=== PATIENT | male | born 1960 | race Two or more races ===

== ENCOUNTER → 2020-01-30 | Outpatient (CLI) | payer OTHER ==
[~2020-01-30] MED LIST: ACET500T68 PO; CRESTOR40 MG PO; GLIM4TAB8 PO; METF10007 PO; NAPR220C4 PO; SITA100T PO
--- NOTE | 2020-01-30 18:03 | PAIN ---
DATE OF SERVICE: 01/30/2020 INITIAL CONSULTATION FOR PAIN CLINIC CHIEF COMPLAINT: Low back and left lower extremity pain. HISTORY OF PRESENT ILLNESS: This is a 59-year-old male who presents with history of pain in the low back, left lower extremity for about a year or little more. The patient reports no specific injury or action he is aware of, but has pain, significant in the low back, left leg with walking, standing, getting up from a seated position and also feels numb in the left gluteus. The patient reports it awakens him from sleep about 3 times a night, can affect his bowel or bladder control, but no loss of continence, just some increased frequency. The patient reports it does affect his ability to walk and stand more than about 15-20 minutes. He tried physical therapy. He has had chiropractic treatment as needed, which were helpful, but only for short term. He is taking Tylenol and Aleve, both of which do decrease the pain by only about 20%. The patient reports he has done Medrol Dosepak as well, which was only temporarily helpful for the first few days while he was taking it also. The patient describes the pain as stabbing and sharp in the left leg, some on the right groin as well, in the right posterior thigh, but mostly in the left posterior thigh and calf, with walking, also some tingling, numbness, radiating pain and can feel cold in the leg as well, worse during the end of the day or at night and he has been on his feet most of his working day. The patient did have an MRI scan of the lumbar spine showing mild spinal stenosis at L3-L4, severe spinal stenosis at L4-L5 with compression of the traversing nerve roots, right greater than left L3-L4 and L4-L5, bilateral L5-S1 neural foraminal narrowing. The patient rates his disability from 0-10, 10 being the worst, 0 is with family home responsibilities, self-care and life support activities, 6 with recreation, 5 with occupational and 5 with sexual behavior. PAST MEDICAL HISTORY: Significant for diabetes type 2, arthritis, also history of psoriasis. PREVIOUS SURGERY: No previous surgeries. CURRENT MEDICATIONS: Include Crestor, glimepiride, metformin, Januvia, acetaminophen, and Aleve. ALLERGIES: The patient has no known drug allergies. FAMILY HISTORY: Significant for diabetes. SOCIAL HISTORY: The patient does not drink alcohol, does not smoke. Does not use any illegal, illicit or recreational drugs. 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 He is on his feet most of his working day, which can be a 10-15 hours or more at times, which does exacerbate his pain. REVIEW OF SYSTEMS: The patient's review of systems is positive for those items mentioned in history of present illness. All systems reviewed and otherwise negative. It is complete, full and well documented on the patient's chart. PHYSICAL EXAMINATION: VITAL SIGNS: The patient's blood pressure is 122/84, pulse 79, respirations 16, temperature 98.3 degrees Fahrenheit, height is 5 feet 7 inches, weight is 165 pounds. GENERAL: The patient is awake, alert, oriented, appropriate, very pleasant demeanor. HEENT: Shows normocephalic, atraumatic. Extraocular movements are intact and symmetrical. Oral cavity: Mucous membranes moist and pink. Dentition is intact. NECK: Shows anterior throat supple without palpable lymphadenopathy noted. Swallow reflex symmetrical. CHEST: Shows normal on inspection. Breath sounds are clear bilaterally. HEART: Shows S1, S2 clear. No murmurs auscultated. ABDOMEN: Soft, nontender, nondistended. No palpable organomegaly is noted. No rebound or guarding demonstrated. BACK: Shows spine grossly in the midline. Normal appearing thoracic kyphosis and minor flattening of lumbar lordotic curvature. Lumbar paraspinous muscle shows symmetrical on inspection, with palpation shows some moderate tenderness diffusely throughout the upper, middle and lower distribution of paraspinous muscles. No specific tenderness over the spinous processes, sacrum or sacroiliac regions. The patient has good rotational motion of lumbar spine with some moderate tenderness with extension, but also with right and left lateral rotation. No tenderness with forward flexion, actually pain is decreased. EXTREMITIES: The patient's lower extremities show deep tendon reflexes 2+ in the patellar, 1+ tendo-calcaneus tendons. Motor exam is strong with approximately ____ scale of 5 with left ankle and 5/5 on the right, quadriceps and hamstring flexion 5/5 and symmetrical bilaterally. Peripheral pulses are 1+ posterior tibia. No peripheral edema is noted bilaterally. The patient's straight leg raise noted to be mildly positive on the left at about 45 degrees, right side is mildly positive with 45 degrees as well, both are decreased with knee flexion. Gaenslen's and Karan's maneuvers are negative bilaterally. The patient is able to stand, stand on his toes without difficulty or loss of balance, walks with a normal appearing gait for short distance in the office today, not using any assistive devices to ambulate such as canes or walkers. SKIN: The patient's skin shows warm and dry, good turgor. No edema. No sores, rashes or bruising. IMPRESSION: 1. This is a 59-year-old male with approximately 1-year history of increasing pain, low back and bilateral lower extremities, greater on the left than the right in a radicular fashion, status post physical therapy, stretching and strengthening exercises on his own, anti-inflammatories, Tylenol and without significant improvement with clinical radiculopathy at L4-L5 dermatomal distribution, left greater than right lower extremity present bilaterally. 2. MRI scan of lumbar spine as noted. 3. Diabetes type 2. 4. Arthritis. PLAN: Options were discussed with the patient including conservative medical managements, physical therapies, interventional techniques. He would like to pursue interventional techniques. We discussed a lumbar epidural steroid injection using description as well as anatomical models to describe the procedure. The patient would like to pursue this in light of formal physical therapy without significant improvement, anti-inflammatory medications, currently doing exercises, stretching and strengthening. The patient continues to work as well. We will preauthorize the patient for a lumbar epidural steroid injection, translaminar approach at the L4-L5 level. Once this is approved, we will have the patient return and plan on lumbar epidural steroid injection at that time. In the meantime, the patient will continue with stretching and strengthening exercises on his own as shown in physical therapy. IRENA DENNEY MD DR: JAMES/prasad JOB#: [id number] / [id number] ELIO Ontiveros MD
== END | disposition home or self-care (01) ==
LOC: PNCL 13:37
PROVIDERS: ATTEND Anesthesiology
DX: M54.16 Radiculopathy, lumbar region (principal); M19.90 Unspecified osteoarthritis, unspecified site; E11.9 Type 2 diabetes mellitus without complications; M48.061 Spinal stenosis, lumbar region without neurogenic claudication; Z79.899 Other long term (current) drug therapy
CPT/HCPCS: G0463

== ENCOUNTER → 2020-02-13 | Outpatient (CLI) | payer OTHER ==
[~2020-02-13] MED LIST changes: +IOHEXOL 180 MG/ML 10 ML VIAL. ONE; +methylPREDNISolone ACETATE 40 MG/ML VIAL. ONE; +methylPREDNISolone ACETATE 80 MG/ML VIAL. ONE
--- NOTE | 2020-02-13 10:42 | PDOC ---
Progress Note - Pain Clinic Date of Service: DOS: DATE: 02/13/20 TIME: 10:39 Diagnosis: Dx: Number radiculopathy with lumbar degenerative disc disease and lumbar spinal stenosis History or Present Illness: HPI: 59-year-old male returns follow-up status post initial evaluation preauthorization for lumbar epidural steroid injection patient's pain is seen today. Patient reports still significant pain in the low back left lower extremity posterior gluteus lateral thigh anterior thigh medial thigh as it was previously. Patient reports is a 9 on scale of 10 is worse over the past week 9 on average 9 at its least is a 9 today patient voices burning and stabbing in the low back and left lower extremity no new motor or sensory deficits no new bowel or bladder incontinence or complaints. Patient ports wakes him sleep better 6 to 7 hours still significant with walking standing changing positions patient reports without using assistive devices however. Reports no new bowel or bladder incontinence no new complaints. Physical Exam: VS: Blood pressure is 116/79 pulse 76 respirations 18 temp is 90.0 F weight is 167 PE: PHYSICAL EXAMINATION: GENERAL: The patient is awake, alert, oriented, appropriate, very pleasant demeanor HEENT: Shows normocephalic, atraumatic. Extraocular movements are intact and symmetrical. Oral cavity: Mucous membranes moist and pink. Dentition is intact. NECK: Shows anterior throat supple without palpable lymphadenopathy noted. Swallow reflex symmetrical. CHEST: Shows normal on inspection. Breath sounds are clear bilaterally. HEART: Shows S1, S2 clear. No murmurs auscultated. ABDOMEN: Soft, nontender, nondistended. No palpable organomegaly is noted. No rebound or guarding demonstrated. BACK: Shows spine grossly in the midline. Normal-appearing cervical lordotic curvature. There is slightly increased thoracic kyphosis, some minor flattening of the lumbar lordotic curvature. Lumbar paraspinous muscles show symmetrical on inspection, on palpation shows some moderate tenderness diffusely throughout the upper, middle and lower distribution of the paraspinous muscles bilaterally and also into the lower thoracic paraspinous musculature, firm and tender, but without specific trigger points, without radiation of pain. The patient has good rotational motion of the lumbar spine, both laterally as well as extension and flexion without significant difficulty. No tenderness over the spinous processes, sacrum or sacroiliac regions. EXTREMITIES: Lower extremities show deep tendon reflexes 2+ in the patellar and tendo calcaneus tendons. Motor exam is 5 on a scale of 5 with right dorsiflexion, extension, quadriceps and hamstring flexion and 4/5 on the left. Peripheral pulses are 1+ posterior tibial. No peripheral edema is noted bilaterally. Lower extremities are warm and dry to touch, equal in color and appearance. The patient is able to stand and walk without favoring the left lower extremity fairly significantly but again not use any assistive devices to ambulate.. SKIN: Shows warm and dry, good turgor. No edema. No sores, rashes or bruising throughout. Procedure: Procedure: Options were discussed with the patient patient chart was use of current medication regimen updated current review of systems updated today as well. We will proceed with a lumbar epidural steroid injection today. Risks were discussed including but not limited to bleeding infection possibility of epidural hematoma and subsequent neurological compromise dural puncture headache spinal cord and or nerve damage side effects of steroid medication and/chronic pain control. Patient understands wished to proceed. Patient return to clinic in approximate 2 weeks for follow-up was counseled return appointment activity level and side effects be aware. Medication Injected: Med Injected: Procedure is lumbar epidural steroid injection under local anesthetic using sterile prep and drape at the L4-5 level using C-arm fluoroscopic guidance in b oth AP and lateral views medications injected is 120 mg Depo-Medrol + 10 mL preservative-free normal saline and 2 mL for contrast- condition at discharge is stable patient tolerated procedure well had no complications. Condition at Discharge: Condition at Discharge: Condition at discharge stable patient on the procedure well had no complications. IRENA DENNEY MD Feb 13, 2020 10:42
== END | disposition home or self-care (01) ==
LOC: PNCL 09:20
PROVIDERS: ATTEND Anesthesiology
DX: M51.16 Intervertebral disc disorders with radiculopathy, lumbar region (principal); M48.061 Spinal stenosis, lumbar region without neurogenic claudication; Z79.899 Other long term (current) drug therapy
CPT/HCPCS: 62323; J1030; J1040; Q9965

== ENCOUNTER → 2020-02-27 | Outpatient (CLI) | payer OTHER ==
[~2020-02-27] MED LIST changes: -IOHEXOL 180 MG/ML 10 ML VIAL. ONE; -methylPREDNISolone ACETATE 40 MG/ML VIAL. ONE; -methylPREDNISolone ACETATE 80 MG/ML VIAL. ONE
--- NOTE | 2020-02-27 09:24 | PDOC ---
Progress Note - Pain Clinic Date of Service: DOS: DATE: 02/27/20 TIME: 09:20 Diagnosis: Dx: Lumbar radiculopathy with lumbar degenerative disease and lumbar spinal stenosis History or Present Illness: HPI: 59-year-old male returns follow-up status post lumbar Q injection x1. Patient reports about 80% improvement after the first injection was on February 12. Patient was doing very well continues to do well to this day is been about 3 weeks now with continued decrease in pain patient still has pain in the low back into the bilateral lower extremities more noticeable on the right side now in the posterior lateral thigh lateral anterior thigh medial thigh on the right with walking and standing occasionally wakes him from sleep about once a night now but is much less than it was. Patient reports no new motor or sensory deficits describes the pain is shooting in the low back in the bilateral lower extremities again now worse on the right patient rates as an 8 on a scale of 10 is worse over the past week 8 on average and 8 its least is an 8 today. Reports no new motor or sensory deficits no bowel or bladder incontinence or other complaints. Physical Exam: VS: Blood pressure is 124/75 pulse 74 respirations 18 temperature 98.7 F height is 5 feet 7 inches weight is 163 pounds PE: PHYSICAL EXAMINATION: GENERAL: The patient is awake, alert, oriented, appropriate, very pleasant demeanor HEENT: Shows normocephalic, atraumatic. Extraocular movements are intact and symmetrical. Oral cavity: Mucous membranes moist and pink. NECK: Shows anterior throat supple without palpable lymphadenopathy noted. Swallow reflex symmetrical. CHEST: Shows normal on inspection. Breath sounds are clear bilaterally. HEART: Shows S1, S2 clear. No murmurs auscultated. ABDOMEN: Soft, nontender, nondistended. No palpable organomegaly is noted. No rebound or guarding demonstrated. BACK: Shows spine grossly in the midline. Normal-appearing cervical lordotic curvature. There is slightly increased thoracic kyphosis, some minor flattening of the lumbar lordotic curvature. Lumbar paraspinous muscles show symmetrical on inspection, on palpation shows some moderate tenderness diffusely throughout the upper, middle and lower distribution of the paraspinous muscles bilaterally but without specific trigger points, without radiation of pain. The patient has good rotational motion of the lumbar spine, both laterally as well as extension and flexion without significant difficulty. No tenderness over the spinous p rocesses, sacrum or sacroiliac regions. EXTREMITIES: Lower extremities show deep tendon reflexes 2+ in the patellar and tendo calcaneus tendons. Motor exam is 4+ on a scale of 5 with right dorsiflexion, extension, quadriceps and hamstring flexion and 4/5 on the left. Peripheral pulses are 1+ posterior tibial. No peripheral edema is noted bilaterally. Lower extremities are warm and dry to touch, equal in color and appearance. SKIN: Shows warm and dry, good turgor. No edema. No sores, rashes or bruising throughout. Procedure: Procedure: Options were discussed with the patient. Patient's old chart was reviewed his his current medication regimen updated current review of systems updated today as well. We will proceed with a preauthorization for second lumbar epidural straight injection if is doing much better 80% improvement still with radicular pain in L4-5 dermatomal distribution bilaterally somewhat more noticeable on the right now than the left. Patient continue with stretching and strengthening exercises maintain daily walking activities and anti-inflammatories as he is currently doing. Authorization is obtained we will have the patient return for lumbar epidural to injection #2 translaminar approach at the L4-5 level at that time. Medication Injected: Med Injected: None Condition at Discharge: Condition at Discharge: Patient discharged in stable patient to return as scheduled IRENA DENNEY MD Feb 27, 2020 09:24
== END | disposition home or self-care (01) ==
LOC: PNCL 08:49
PROVIDERS: ATTEND Anesthesiology
DX: M51.16 Intervertebral disc disorders with radiculopathy, lumbar region (principal); M48.061 Spinal stenosis, lumbar region without neurogenic claudication; E11.9 Type 2 diabetes mellitus without complications; Z79.899 Other long term (current) drug therapy
CPT/HCPCS: G0463

== ENCOUNTER → 2020-05-23 | Outpatient (CLI) | payer OTHER ==
[~2020-05-23] MED LIST changes: +IOHEXOL 180 MG/ML 10 ML VIAL. ONE; +methylPREDNISolone ACETATE 40 MG/ML VIAL. ONE; +methylPREDNISolone ACETATE 80 MG/ML VIAL. ONE
--- NOTE | 2020-05-23 12:17 | PDOC ---
Progress Note - Pain Clinic Date of Service: DOS: DATE: 05/23/20 TIME: 12:13 Diagnosis: Dx: Lumbar radiculopathy with lumbar degenerative disc disease and lumbar spinal stenosis History or Present Illness: HPI: 60-year-old male returns follow-up status post lumbar epidural injection x1. Patient reports about 80% improvement after the last injection until about a week ago the pain began to return in his low back and right greater than left lower extremities left leg is doing much better he reports but has the right leg is still significant painful pain in the posterior gluteus posterior lateral thigh lateral anterior thigh anteromedial thigh medial lower leg as well as anterior lower leg again more on the right side. Patient scribes as tingling and burning can be severe at times worse with walking standing changing positions better with sitting or laying down patient ports pain is at worst a 10 on scale 10 average at 10-9 out of least and is a 10 today. Patient reports he is doing better with sitting or laying down however does not awaken her from sleep at night reports no new motor or sensory deficits no bowel or bladder incontinence or other complaints. Physical Exam: VS: Blood pressure is 118/76 pulse 76 respirations 18 temperature 98.5 F height is 5 feet 7 inches weight 165 pounds PE: PHYSICAL EXAMINATION: GENERAL: The patient is awake, alert, oriented, appropriate, very pleasant demeanor HEENT: Shows normocephalic, atraumatic. Extraocular movements are intact and symmetrical. Oral cavity: Mucous membranes moist and pink. Dentition is intact. NECK: Shows anterior throat supple without palpable lymphadenopathy noted. Swallow reflex symmetrical. CHEST: Shows normal on inspection. Breath sounds are clear bilaterally, no rales rhonchi or wheezes auscultated. HEART: Shows S1, S2 clear. No murmurs auscultated. ABDOMEN: Soft, nontender, nondistended, obese. No palpable organomegaly is noted. No rebound or guarding demonstrated. BACK: Shows spine grossly in the midline. Normal-appearing cervical lordotic curvature. There is slightly increased thoracic kyphosis, some minor flattening of the lumbar lordotic curvature. Lumbar paraspinous muscles show symmetrical on inspection, on palpation shows some moderate tenderness diffusely throughout the upper, middle and lower distribution of the paraspinous muscles, but without specific trigger points, without radiation of pain. The patient has good rotational motion of the lumbar spine, both laterally as well as extension and flexion without significant difficulty. No tenderness over the spinous processes, sacrum or sacroiliac regions. EXTREMITIES: Lower extremities show deep tendon reflexes 2+ in the patellar and tendo calcaneus tendons. Motor exam is 5 on a scale of 5 with right dorsiflexion, extension, quadriceps and hamstring flexion and 5/5 on the left. Peripheral pulses are 1+ posterior tibial. No peripheral edema is noted bilaterally. Lower extremities are warm and dry to touch, equal in color and appearance. SKIN: Shows warm and dry, good turgor. No edema. No sores, rashes or bruising throughout. Procedure: Procedure: Options were discussed with the patient. Patient chart was reviewed his his current medication regimen updated current review of systems updated today as well. We will proceed with a second in the series lumbar epidural steroid injection today with fluoroscopic guidance. Risks were discussed including but not limited to: Bleeding, infection, possibility of epidural hematoma and subsequent neurological compromise, dural puncture, headaches, spinal cord and/or nerve damage, side effects of steroid medication, and poor results regarding pain control. Patient understands wished to proceed. Patient will return to clinic in approximate 2 weeks for follow-up was counseled as to return appointment activity level and side effects to be aware of. Medication Injected: Med Injected: Procedure is lumbar epidural steroid injection under local anesthetic using sterile prep and drape at the L4-5 level using C-arm fluoroscopic guidance in both AP and lateral views medications injected is 120 mg Depo-Medrol + 10 mL preservative-free normal saline and 2 mL contrast- condition at discharge is stable patient tolerated procedure well had no complications. Condition at Discharge: Condition at Discharge: Condition at discharge is stable, patient tolerated procedure well and had no complications. IRENA DENNEY MD May 23, 2020 12:17
== END | disposition home or self-care (01) ==
LOC: PNCL 11:19
PROVIDERS: ATTEND Anesthesiology
DX: M51.16 Intervertebral disc disorders with radiculopathy, lumbar region (principal); M48.061 Spinal stenosis, lumbar region without neurogenic claudication; Z79.84 Long term (current) use of oral hypoglycemic drugs; Z79.899 Other long term (current) drug therapy
CPT/HCPCS: 62323; J1030; J1040; Q9965

== ENCOUNTER → 2020-09-13 | Outpatient (CLI) | payer OTHER ==
[~2020-09-13] MED LIST changes: -IOHEXOL 180 MG/ML 10 ML VIAL. ONE; -methylPREDNISolone ACETATE 40 MG/ML VIAL. ONE; -methylPREDNISolone ACETATE 80 MG/ML VIAL. ONE
--- NOTE | 2020-09-13 08:10 | PDOC ---
Progress Note - Pain Clinic Date of Service: DOS: DATE: 09/13/20 TIME: 08:06 Diagnosis: Dx: Lumbar radiculopathy with lumbar degenerative disc disease and lumbar spinal stenosis History or Present Illness: HPI: 60-year-old male returns for follow-up status post lumbar epidural steroid injections x2. Last seen May 23, 2020. Patient reports about 80% improvement initially pain is returning significantly in the low back especially the right lower extremity posterior gluteus posterior lateral thigh lateral anterior thigh anterior medial thigh medial lower leg as well as the posterior calf and thigh bilaterally. Patient reports is a 10 on scale 10 at all times worst least and average over the past week and is a 10 today patient ported sharp and severe radiating shooting in the lower extremities getting worse with some weakness in the right leg with significant fatigue. Patient reports by about 1:00 in the afternoon after he has been working the pain is so severe he must lay down to try and get it to subside. Patient reports it wakes him sleep about once every 6 hours but is generally better with sitting or laying down. Patient reports no new motor or sensory deficits no new bowel or bladder incontinence. We reviewed his MRI scan from May 2019 showing a significant broad-based right paracentral right foraminal disc protrusion at L4-5. Patient is somewhat frustrated as his pain keeps returning and he is done physical therapy he is done stretching strength exercises oral medications and injections and would like to speak to a surgeon regarding his options there as well. Patient reports no new motor or sensory deficits no new bowel or bladder incontinence. Physical Exam: VS: Blood pressure is 122/79 pulse 85 respiration 16 temperature 90.0 F weight is 161 pounds PE: PHYSICAL EXAMINATION: GENERAL: The patient is awake, alert, oriented, appropriate, very pleasant demeanor HEENT: Shows normocephalic, atraumatic. Extraocular movements are intact and symmetrical. Oral cavity: Mucous membranes moist and pink. Dentition is intact. NECK: Shows anterior throat supple without palpable lymphadenopathy noted. Swallow reflex symmetrical. CHEST: Shows normal on inspection. Breath sounds are clear bilaterally, no rales rhonchi or wheezes auscultated. HEART: Shows S1, S2 clear. No murmurs auscultated. ABDOMEN: Soft, nontender, nondistended, flat. No palpable organomegaly is noted. No rebound or guarding demonstrated. BACK: Shows spine grossly in the midline. Normal-appearing cervical lordotic curvature. There is slightly increased thoracic kyphosis, some minor flattening of the lumbar lordotic curvature. Lumbar paraspinous muscles show symmetrical on inspection, on palpation shows some moderate tenderness diffusely throughout the upper, middle and lower distribution of the paraspinous musculature without specific trigger points, without radiation of pain. The patient has good rotational motion of the lumbar spine, both laterally as well as extension and flexion without significant difficulty. EXTREMITIES: Lower extremities show deep tendon reflexes 2+ in the patellar and tendo calcaneus tendons. Motor exam is 5 on a scale of 5 with right dorsiflexion, extension, quadriceps and hamstring flexion and 5/5 on the left. Peripheral pulses are 1+ posterior tibial. No peripheral edema is noted bilaterally. Lower extremities are warm and dry to touch, equal in color and appearance. SKIN: Shows warm and dry, good turgor. No edema. No sores, rashes or bruising throughout. Procedure: Procedure: Options were discussed with the patient. Patient chart was reviewed his current medication regimen updated current review of systems updated today as well. We will make referral for neurosurgeon evaluation. Also will order new MRI scan has been over a year since his last imaging. Patient was encouraged to maintain stretching strength exercises and will wait for surgical evaluation following MRI scan. Medication Injected: Med Injected: None Condition at Discharge: Condition at Discharge: Condition at discharge is stable. IRENA DENNEY MD Sep 13, 2020 08:10
== END | disposition home or self-care (01) ==
LOC: PNCL 07:34
PROVIDERS: ATTEND Anesthesiology
DX: M51.16 Intervertebral disc disorders with radiculopathy, lumbar region (principal); M48.061 Spinal stenosis, lumbar region without neurogenic claudication; Z98.890 Other specified postprocedural states
CPT/HCPCS: 99212; G0463

== ENCOUNTER → 2020-09-26 | Outpatient (CLI) | payer OTHER ==
--- NOTE | 2020-09-26 11:03 | RAD ---
MR LUMBAR SPINE WO [id number] History: Reason: RT lumbar radiculopathy / Spl. Instructions: / History: Technique: Multiplanar, multi sequential MR imaging was performed of the lumbar spine. Comparison: None Findings: Grade 1 anterolisthesis L4 on L5. Normal vertebral body height. No fracture. T12 vertebral body heman gioma. Conus terminates at the normal location. No evidence of nerve root clumping. L1-L2: No canal or neuroforaminal narrowing. L2-L3: No canal or neuroforaminal narrowing. L3-L4: Broad-based disc bulge. Mild facet arthropathy. Mild subarticular recess narrowing, right gre ater than left. No canal narrowing. No neuroforaminal narrowing. L4-L5: Anterolisthesis. Broad-based disc bulge eccentric to the right. Moderate facet arthropathy. M oderate to severe canal narrowing with nerve root compression. Severe subarticular recess narrowing, right greater than left. Compression of the descending right L5 nerve root. Mild right neuroforaminal narrowing. No left neuroforaminal narrowing. L5-S1: Small disc bulge. Mild facet arthropathy. No canal narrowing. Mild bilateral neuroforaminal n arrowing. Impression: 1. Multilevel lumbar spondylosis most prominent L4-5. 2. L4-5 grade 1 anterolisthesis due to advanced facet arthropathy contributing to moderate to severe canal narrowing with nerve root compression. 3. Neuroforaminal narrowing L4-L5 and L5-S1. Electronically signed by: Wale Lobo DO (09/26/2020 11:00 AM) [id number]
== END | disposition home or self-care (01) ==
LOC: MRI 08:52
PROVIDERS: ATTEND Anesthesiology
DX: M47.26 Other spondylosis with radiculopathy, lumbar region (principal); M48.061 Spinal stenosis, lumbar region without neurogenic claudication; Z79.84 Long term (current) use of oral hypoglycemic drugs; Z79.899 Other long term (current) drug therapy
CPT/HCPCS: 72148